=== PATIENT | female | born 1930 | race Caucasian/White ===

== ENCOUNTER 2017-01-06 09:15 | Outpatient (CLI) | payer MEDICARE ==
--- NOTE | 2017-01-06 16:00 | RAD ---
CHEST TWO VIEWS: Date: 01-06-17 Comparison: 11-09-08. No recent films were available for comparison. FINDINGS: The heart is mildly enlarged but there are no congestive changes. The right hemidiaphragm is a littl e less curved and even than it was before. A small amount of pleural fluid in the right base is poss ible. Overall the lungs seem mildly hyperexpanded such as one might see in COPD. There is calcified change in the aortic arch. The bones are quite osteopenic. IMPRESSION: 1. Mild cardiomegaly and arteriosclerosis without any congestive change. 2. Hyperexpanded lungs. 3. Possible small right pleural effusion. POS: HOME
== END 2017-01-06 09:16 | disposition home or self-care (01) ==
LOC: BURRAD 09:15
PROVIDERS: ATTEND Physician Assistant
DX: R89.9 Unspecified abnormal finding in specimens from other organs, systems and tissues (principal); I51.7 Cardiomegaly; I70.0 Atherosclerosis of aorta
CPT/HCPCS: 71020

== ENCOUNTER 2017-01-08 09:40 | Outpatient (CLI) | payer MEDICARE ==
[2017-01-08 10:59] LABS: ALT (SGPT) 18 U/L (8-55); AST (SGOT) 19 U/L (5-34); Albumin 4.1 g/dL (3.4-4.8); Alkaline Phosphatase 69 U/L (40-150); Anion Gap 13 mmol/L (10-20); BUN (Urea Nitrogen) 10 mg/dL (9.8-20.1); Bilirubin, Total 1.2 mg/dL (0.2-1.2); Calc. Creatinine Clearance 0 mL/min (70-130); Calcium 9.3 mg/dL (7.8-10.44); Carbon Dioxide 29 mmol/L (23-31); Cardiac Risk 2.9 (Less than 4.5); Chloride 103 mmol/L (98-107); Cholesterol 157 mg/dl (< 200 Desired); Estimated GFR-MDRD 78; Globulin 2.4 g/dL (2.4-3.5); Glucose 85 mg/dL (83-110); HDL Cholesterol 54 mg/dL (>60 Neg Risk); LDL Cholesterol, Calculated 84 mg/dL; Potassium 4.1 mmol/L (3.5-5.1); Protein, Total 6.5 g/dL (6.0-8.3); Sodium 141 mmol/L (136-145); Triglycerides 94 mg/dL (Less than 150)
[2017-01-08 11:21] LABS: Thyroid Stimulating Hormone 1.5818 uIU/mL (0.35-4.94)
[2017-01-08 11:55] LABS: #Eosinphils 0.1 thou/uL (0.0-0.7); #Lymphocytes 1.5 thou/uL (1.20-3.40); #Monocytes 0.4 thou/uL (0.11-0.59); #Neutrophils 2.7 thou/uL (1.40-6.50); %Eosinophils 2.7 % (0.0-10.0); %Lymphocytes 31.1 % (21.0-51.0); %Monocytes 8.9 % (0.0-10.0); %Neutrophils 56.3 % (42.0-75.0); Hemoglobin 12.8 g/dL (12.0-16.0); MDiff Complete? YES; Mean Corpuscular HGB CONC 33.2 g/dL (32.0-36.0); Mean Corpuscular Volume 93.4 fl (81.0-99.0); PLT Morphology Comment Appears Adequate; Platelet Clumps MARKED; Platelet Count 41 thou/uL (130-400); RBC Distribution Width 12.2 % (11.5-14.5); RBC Morphology Normal; Red Blood Cell (RBC) Count 4.13 mill/uL (4.20-5.40); White Blood Cell (WBC) Count 4.7 thou/uL (4.8-10.8)
== END 2017-01-08 09:41 | disposition home or self-care (01) ==
LOC: HPCALD 09:40
PROVIDERS: ATTEND Physician Assistant
DX: E78.5 Hyperlipidemia, unspecified (principal); E55.9 Vitamin D deficiency, unspecified; I10 Essential (primary) hypertension
CPT/HCPCS: 36415; 80053; 80061; 82306; 84443; 85025